=== PATIENT | female | born 1995 | race Caucasian/White ===

== ENCOUNTER 2021-02-01 10:30 | Outpatient (RCR) | payer BC, SELFPAY ==
[2021-02-01 12:26] LABS: Hematocrit 34.5 % (37.0-47.0); Hemoglobin 11.2 g/dL (12.0-15.0)
[2021-02-01 12:35] LABS: Glucose 1 Hour PP 50gm Dose 114 mg/dL
[2021-02-01 13:38] LABS: HIV 1/2 Ab P24 Ag Result Negative (Negative)
[2021-02-04] MEDS: RHO(D) IMMUNE GLOBULIN 300 MCG/2 ML SYRINGE IM (09:53)
[2021-02-04 10:25] LABS: Rapid Plasma Reagin Non-Reactive (NonReactive)
== END 2021-05-02 23:59 | disposition home or self-care (01) ==
LOC: ANHLAB 10:30
PROVIDERS: PCP Family Medicine; Visit Provider Obstetrics & Gynecology
DX: Z11.4 Encounter for screening for human immunodeficiency virus [HIV] (principal); Z29.13 Encounter for prophylactic Rho(D) immune globulin; O36.0130 Maternal care for anti-D [Rh] antibodies, third trimester, not applicable or unspecified; Z3A.00 Weeks of gestation of pregnancy not specified
CPT/HCPCS: 36415; 82947; 85014; 85018; 85461; 86592; 86703; 90384; 96372; G0432; J2790

== ENCOUNTER 2021-03-04 18:19 | Observation (INO) | payer BC, SELFPAY ==
[2021-03-04 18:55] VITALS: PULSE 127; O2SAT 97
[2021-03-04 18:56] VITALS: BP 105/60; PULSE 120
[2021-03-04 19:00] VITALS: TEMP 38.1
[2021-03-04 19:01] VITALS: BP 108/70; PULSE 124
[2021-03-04 19:16] VITALS: BP 109/75; PULSE 140
[2021-03-04 19:31] VITALS: BP 83/50; PULSE 122
[2021-03-04 19:52] VITALS: BMI 35.8
--- NOTE | 2021-03-04 19:53 | OBADM ---
This patient, Jasmin Etienne, admitted to the OB room OB Post 115 for observation. Patient/family oriented to hospital policies and general routines including ID bracelet, bed and alarms, visiting hours, pain management, procedures, bathroom and other care routines, personal items, smoking policy, room service/diet, and visiting hours. Patient/Family are encouraged to report perceived risks to care and to ask questions if they do not understand what they are told or what they should do. Patient was sent over from the ER for evaluation of Back Cramping Patient states that she originally presented to the ER for COVID symptoms. Patient states that she started having Symptoms on Thursday. Patient reports no shortness of breath or difficultly breathing. Patient states that she fever and body aches have been her worst symptoms. States that she has only had a slight cough. Patient also has some nausea and lack of appetite. Patient states that she has not yet been tested for covid, all of the regular testing places are booked up until the 16th of the month.
[2021-03-04 20:01] LABS: EDCOVIDSCREEN Positive (Negative)
--- NOTE | 2021-03-22 08:16 | PM.OBTRLD ---
OB - Triage/Final Diagnosis Visit Information Comments/Additional reasons for admission: I have assessed the risk for this patient, Jasmin Etienne, and determined that she would benefit from observation care. Evaluation Laboratory results: Laboratory Tests 03/04/21 19:46 SARS-CoV-2 IgG/IgM Ag?Rapid Positive Final Diagnosis (1) False labor: Code(s): O47.9 - False labor, unspecified Status: Acute
== END 2021-03-04 19:48 | disposition home or self-care (01) ==
PROVIDERS: Advanced Practice Midwife; Admitting Provider Obstetrics & Gynecology; PCP Family Medicine; Visit Provider Obstetrics & Gynecology
DX: O47.03 False labor before 37 completed weeks of gestation, third trimester (principal); O98.513 Other viral diseases complicating pregnancy, third trimester; U07.1 COVID-19; Z3A.32 32 weeks gestation of pregnancy
CPT/HCPCS: 36415; 87426; C9803; G0378; G0379

== ENCOUNTER 2021-04-13 01:02 | Inpatient (IN) | payer BC, SELFPAY ==
[2021-04-13] VITALS (65 sets, daily range): BP systolic 66–136; BP diastolic 34–104; PULSE 75–216; RESP 16–18; TEMP 36.1–37.1; O2SAT 81–100; BMI 31.6
--- NOTE | 2021-04-13 02:06 | LDADM ---
This patient, Jasmin Etienne, was admitted to Labor/Delivery/Recovery 107 on 04/13/21 at 01:02. Plans for labor, pain management and were discussed with patient. Patient/family oriented to hospital policies and general routines including ID bracelet, bed and alarms, visiting hours, pain management, procedures, bathroom and other care routines, personal items, smoking policy, room service/diet and guest tray routines, security routines, and visiting hours. Patient/Family are encouraged to report perceived risks to care and to ask questions if they do not understand what they are told or what they should do. See OBIX for further documentation.
[2021-04-13 02:13] LABS: Basophils Absolute Auto 0.1 K/mm3 (0.0-0.1); Basophils Percent Auto 0.6 % (0.2-1.2); Eosinophils Absolute Auto 0.1 K/mm3 (0-0.3); Eosinophils Percent Auto 0.9 % (0-4.4); Hematocrit 33.3 % (37.0-47.0); Hemoglobin 10.5 g/dL (12.0-15.0); Immature Granulocyte Absolute 0.11 K/mm3 (0.00-0.031); Immature Granulocyte Percent A 0.9 % (0-0.5); Lymphocytes Absolute Auto 3.15 K/mm3 (0.9-3.2); Lymphocytes Percent Auto 25.4 % (18.3-44.2); Mean Corpuscular HGB Conc 31.5 g/dl (32-36); Mean Corpuscular Hemoglobin 27.1 pg (26-34); Mean Corpuscular Volume 85.8 fl (80-100); Mean Platelet Volume 11.6 fl (7.4-10.4); Monocytes Absolute Auto 1.1 K/mm3 (0.1-0.6); Monocytes Percent Auto 8.7 % (2.6-8.5); Neutrophils Absolute Auto 7.9 K/mm3 (1.3-6.7); Neutrophils Percent Auto 63.5 % (45.5-73.1); Platelet Count Result 297 k/mm3 (150-375); Red Blood Count 3.88 M/mm3 (4.2-5.4); Red Cell Distribution Width 16.1 % (11.5-14.5); White Blood Count 12.4 K/mm3 (4.5-10.0)
[2021-04-13] MEDS: fentaNYL CITRATE INJ (*CRX) 100 MCG/2 ML VIAL 50 MCG IV PUSH (02:14)
[2021-04-13] MEDS: LACTATED RINGERS 1,000 ML 125 ML IV CONT ×3 (03:06→05:08)
--- NOTE | 2021-04-13 03:54 | WPDANESEPPF ---
Anes - Initial Pre Proc Eval Procedure: labor epidural Date/Time: 04/13/21 03:54 Surgeon: Myranda Martin MD Pre Op Diagnosis: labor pain Pre Op Diagnosis: Leaking Patient Data Age: 25 Gender: F Height: 1.65 m Weight: 86.3 kg Last Vital Signs Temp 36.6 C 04/13/21 02:18 Pulse 91 04/13/21 03:52 BP 115/64 04/13/21 03:52 Pulse Ox 100 04/13/21 03:51 Allergies Allergy/AdvReac Type Severity Reaction Status Date / Time No Known Allergies Allergy Verified 02/04/21 09:52 Home Medications Medication Instructions Recorded Confirmed Type PNV cmb#95-ferrous fumarate-FA 1 tablet PO DAILY 04/01/21 04/01/21 History [] aspirin 81 mg PO DAILY 04/01/21 04/01/21 History Laboratory Tests 04/13/21 04/13/21 04/13/21 01:49 01:49 01:49 WBC 12.4 K/mm3 H K/mm3 (4.5-10.0) RBC 3.88 M/mm3 L M/mm3 (4.2-5.4) Hgb 10.5 g/dL L g/dL (12.0-15.0) Hct 33.3 % L % (37.0-47.0) MCV 85.8 fl fl (80-100) MCH 27.1 pg pg (26-34) MCHC 31.5 g/dl L g/dl (32-36) RDW 16.1 % H % (11.5-14.5) Plt Count 297 k/mm3 k/mm3 (150-375) MPV 11.6 fl H fl (7.4-10.4) Immature Gran % (Auto) 0.9 % H % (0-0.5) Neut % (Auto) 63.5 % % (45.5-73.1) Lymph % (Auto) 25.4 % % (18.3-44.2) [place] % (Auto) 8.7 % H % (2.6-8.5) Eos % (Auto) 0.9 % % (0-4.4) Baso % (Auto) 0.6 % % (0.2-1.2) Lymph # (Auto) 3.15 K/mm3 K/mm3 (0.9-3.2) [place] # (Auto) 1.1 K/mm3 H K/mm3 (0.1-0.6) Eos # (Auto) 0.1 K/mm3 K/mm3 (0-0.3) Baso # (Auto) 0.1 K/mm3 K/mm3 (0.0-0.1) Abs Immat Gran (auto) 0.11 K/mm3 H K/mm3 (0.00-0.031) Absolute Neuts (auto) 7.9 K/mm3 H K/mm3 (1.3-6.7) Absolute Nucleated RBC 0.0 K/mm3 K/mm3 (0.0-0.012) Nucleated RBC % 0.0 % % (0.0-0.2) RPR Pending Blood Type O Negative Antibody Screen Negative Patient hx anesthesia problems: none Family hx anesthesia problems: none Results Review: All pre-operative results and documents have been reviewed as part of the pre-operative evaluation. [facility] Family History Family History (Updated 04/01/21 @ 13:38 by Chastity Peterson RN) Other No pertinent family history Social History Social History Smoking status: Never smoker Substance use: never Spiritual care concerns: No Anes - Eval Final PreProcedure Day of Procedure 04/13/21 03:54 Patient weight: obese ASA classification: II Anesthesia type and monitoring: regional epidural and standard monitoring Results Review: All pre-operative results and documents have been reviewed as part of the pre-operative evaluation. Informed Consent: The patient's anesthetic plan and its attendant risks and benefits were discussed with the patient/family/POA. Questions were solicited and answers provided to the satisfaction of the patient/family/POA.
[2021-04-13] MEDS: ONDANSETRON INJ 4 MG/2 ML VIAL IV PUSH (06:52)
[2021-04-13] MEDS: OXYTOCIN 30 UNITS/NS 500 ML 30 UNITS/500 ML BAG 999 UNITS IV CONT (07:07)
--- NOTE | 2021-04-13 07:28 | PM.OBPRVD ---
OB - Delivery Note Procedure Delivery date: 04/13/21 Procedure: vaginal delivery Induction method: None Delivery monitor: External FHT and External Uterine Route of delivery: Laceration Description: Perineal - 1st Degree and Labial (left) Delivery repair: vicryl Specimen: Yes Quantitative Blood Loss (ml): 135 Anesthesia type: Epidural Disposition: floor [place] Baby Date of : 04/13/21 Time of : 07:04 Weeks of gestation at delivery: 38 gender: Male Weight (pounds): 7 Weight (ounces): 1 presentation: vertex position: Left Occiput Transverse Placenta delivery description: Spontaneous Cord Vessel Description: 3 Vessels, Clamped/Cut and Delayed Cord Clamping score one minute: 9 score five minutes: 9 Narrative: mother and baby skin to skin in stable condition
[2021-04-13] MEDS: OXYTOCIN 30 UNITS/NS 500 ML 30 UNITS/500 ML BAG 125 UNITS IV CONT (07:39)
[2021-04-13] MEDS: WITCH HAZEL 40 PADS 1 PAD TOPICAL (10:00)
[2021-04-13] MEDS: BENZOCAINE 20% AER SPR (*SP) 56 GM CAN 1 SPRAY TOPICAL (10:00)
[2021-04-13] MEDS: IBUPROFEN 600 MG TABLET PO ×2 (12:31→19:09)
--- NOTE | 2021-04-13 13:29 | OBPPTRN ---
1028-Patient transferred to post room #286 via wheelchair. Support person present. Oriented to unit, room, information board, rooming in, admission packet and security measures. Patient verbalizes understanding.
[2021-04-14 00:12] VITALS: BP 110/65; PULSE 80; RESP 16; TEMP 36.4; O2SAT 99
[2021-04-14] MEDS: IBUPROFEN 600 MG TABLET PO ×3 (01:11→16:01)
[2021-04-14 05:15] VITALS: BP 129/90; PULSE 77; RESP 18; TEMP 36.6; O2SAT 98
[2021-04-14 05:22] LABS: Hematocrit 30.7 % (37.0-47.0); Hemoglobin 9.5 g/dL (12.0-15.0)
[2021-04-14 08:04] VITALS: BP 118/74; PULSE 75; RESP 16; TEMP 36.1
[2021-04-14] MEDS: POLYSACCHARIDE IRON COMPLEX 150 MG CAPSULE PO ×2 (08:04→15:59)
--- NOTE | 2021-04-14 10:53 | PM.OBPNVD ---
OB - PN: Subj Subjective Date/time seen: 04/14/21 10:53 Patient comments: no complaints baby status: doing well OB - PN: Obj Data Labs CBC & Chem 7: 04/14/21 05:11 Labs: Laboratory Results - last 24 hr 04/14/21 04/14/21 05:11 05:11 Hgb 9.5 L Hct 30.7 L Blood Type O Negative Antibody Screen TNP Screen Negative Baby's Blood Type O pos Baby's DIANE Negative Doses of RhIg Required 1 OB - PN A/P Plan day: 1 Plan: routine care Time Spent With Patient Time: Total time spent is greater than 50% in coordination of care (as documented) at patient's floor/unit and/or counseling patient: Review of Systems Review of Systems: All systems reviewed & are unremarkable except as noted in HPI and below Exam Const: General: cooperative, healthy appearing and comfortable
[2021-04-14] MEDS: RHO(D) IMMUNE GLOBULIN 300 MCG/2 ML SYRINGE IM (12:51)
[2021-04-14 19:14] VITALS: BP 121/82; PULSE 72; RESP 16; TEMP 36.9; O2SAT 99
[2021-04-15 07:15] LABS: Rapid Plasma Reagin Non-Reactive (NonReactive)
--- NOTE | 2021-04-15 07:30 | PM.OBPNVD ---
OB - PN: Subj Subjective Date/time seen: 04/15/21 07:30 Patient comments: no complaints baby status: doing well OB - PN: Obj Data Labs CBC & Chem 7: 04/14/21 05:11 Labs: Laboratory Results - last 24 hr 04/13/21 04/14/21 01:49 05:11 RPR Non-reactive Blood Type O Negative Antibody Screen TNP Screen Negative Baby's Blood Type O pos Baby's DIANE Negative Doses of RhIg Required 1 OB - PN A/P Plan day: 2 Plan: routine care and discharge home (F/U in 4 weeks) Time Spent With Patient Time: Total time spent is greater than 50% in coordination of care (as documented) at patient's floor/unit and/or counseling patient: Time with patient: less than 15 minutes Review of Systems Review of Systems: All systems reviewed & are unremarkable except as noted in HPI and below Exam Narrative: Fundus firm and vaginal flow controlled. No lower ext redness, warmth, or edema. Negative homans. Const: General: comfortable Chest: Breast/axilla inspection: normal inspection of the breasts Resp: Effort & Inspection: normal respiratory effort Cardio: Rate: regular rate GI: GI Palp: Yes Soft to palpation Psych: Appearance: grossly normal Affect: normal affect Attitude: cooperative Thought content: Yes Normal thought content present Judgement: Good judgement present (Psych)
--- NOTE | 2021-04-15 07:31 | PM.OBDSVD ---
DS: Admitting Diagnosis Discharge Date 04/15/20 Admitting Diagnosis Labor OB - DS: Summary OB Procedures : None OB Procedures Intrapartum: Spontaneous Vag Delivery OB Procedures: : None Time Spent with Patient Time attestation: Total time spent providing and/or coordinating discharge services: DS: Data Data Completed and Pending Pending studies at discharge: Pending at discharge 04/13/21 07:08 Surgical [PTH] Routine Labs on day of discharge: Labs from last 24 hours 04/14/21 04/13/21 05:11 01:49 RPR Non-reactive Blood Type O Negative Antibody Screen TNP Screen Negative Baby's Blood Type O pos Baby's DIANE Negative Doses of RhIg Required 1 Discharge Plan Discharge Attending physician on discharge: Moni Art Discharging Clinician: Moni Art Patient Disposition: Home, Self-Care Activity: pelvic rest Diet: as tolerated Patient Instructions: Antibiotic Form Stand Alone Forms: General Discharge Information Follow-up/Referrals: Moni Art, CNM [Certified Nurse Fire Apparatus Sprinkler Inspector] - Discharge Medications: Continued aspirin 81 mg Tablet 81 mg PO DAILY RF: 0 PNV cmb#95-ferrous fumarate-FA [] 28 mg iron- 800 mcg Tablet 1 tablet PO DAILY RF: 0 Date of admission: 04/13/21 01:02 Primary Care Provider: [place] Gre[place] Admitting Provider: Myranda Martin Attending physician on admission: Myranda Martin Condition: Stable
[2021-04-15] MEDS: IBUPROFEN 600 MG TABLET PO ×2 (07:55)
[2021-04-15] MEDS: DOCUSATE SODIUM 100 MG CAPSULE PO (07:55)
[2021-04-15] MEDS: POLYSACCHARIDE IRON COMPLEX 150 MG CAPSULE PO (07:55)
[2021-04-15 07:59] VITALS: BP 119/77; PULSE 79; RESP 18; TEMP 36.8; O2SAT 100
--- NOTE | 2021-04-15 08:00 | PC.NURSE ---
Patient viewed the discharge video Mother & Baby Care, The First Two Weeks . Patient was given the opportunity and encouraged to ask questions. Patient verbalized understanding of information shared and has been given the mother/baby guide for home reference.
[2021-04-16 11:21] VITALS: BP 127/76; PULSE 88; RESP 16; TEMP 36.6; O2SAT 99
== END 2021-04-15 09:05 | disposition home or self-care (01) | DRG 807 ==
LOC: ANHLDR 01:36 → ANHOB2 10:34
PROVIDERS: Advanced Practice Midwife; Admitting Provider Obstetrics & Gynecology; PCP Family Medicine; Visit Provider Obstetrics & Gynecology
DX: O70.0 First degree perineal laceration during delivery (principal); Z37.0 Single live birth; Z3A.38 38 weeks gestation of pregnancy; O36.8330 Maternal care for abnormalities of the fetal heart rate or rhythm, third trimester, not applicable or unspecified; Z23 Encounter for immunization
CPT/HCPCS: 36415; 84112; 85014; 85018; 85025; 85461; 86592; 86850; 86900; 86901; 88307; 90384; 90471; 90653; A9270; G0008; J2405; J2590; J2790; J2795; J3010; J7120

== ENCOUNTER 2023-03-31 10:35 | Outpatient (RCR) | payer OTHER, BC, MEDICAID, SELFPAY ==
[2023-03-28 13:03] LABS: Glucose 1 Hour PP 50gm Dose 103 mg/dL
[2023-03-31] MEDS: RHO(D) IMMUNE GLOBULIN 300 MCG/2 ML SYRINGE IM (09:06)
== END 2023-03-31 11:00 | disposition home or self-care (01) ==
LOC: ANHLAB 10:35
PROVIDERS: PCP Family Medicine; Visit Provider Obstetrics & Gynecology
DX: Z29.13 Encounter for prophylactic Rho(D) immune globulin (principal); O36.0190 Maternal care for anti-D [Rh] antibodies, unspecified trimester, not applicable or unspecified; Z3A.00 Weeks of gestation of pregnancy not specified
CPT/HCPCS: 36415; 82947; 85461; 86850; 86900; 86901; 90384; 96372; J2790

== ENCOUNTER 2023-05-13 05:01 | Inpatient (IN) | payer OTHER, BC, MEDICAID, SELFPAY ==
[2023-05-13] VITALS (130 sets, daily range): BP systolic 62–153; BP diastolic 29–122; PULSE 59–178; RESP 18; TEMP 36.8–37.1; O2SAT 81–100; BMI 37.0
[2023-05-13 05:53] LABS: Basophils Absolute Auto 0.1 K/mm3 (0.0-0.1); Basophils Percent Auto 0.6 % (0.2-1.2); Eosinophils Absolute Auto 0.1 K/mm3 (0-0.3); Eosinophils Percent Auto 0.9 % (0-4.4); Hematocrit 34.1 % (37.0-47.0); Hemoglobin 10.4 g/dL (12.0-15.0); Immature Granulocyte Absolute 0.11 K/mm3 (0.00-0.031); Immature Granulocyte Percent A 0.9 % (0-0.5); Lymphocytes Absolute Auto 3.53 K/mm3 (0.9-3.2); Lymphocytes Percent Auto 30.4 % (18.3-44.2); Mean Corpuscular HGB Conc 30.5 g/dl (32-36); Mean Corpuscular Hemoglobin 24.8 pg (26-34); Mean Corpuscular Volume 81.4 fl (80-100); Mean Platelet Volume 10.5 fl (7.4-10.4); Monocytes Absolute Auto 0.9 K/mm3 (0.1-0.6); Monocytes Percent Auto 7.8 % (2.6-8.5); Neutrophils Absolute Auto 6.9 K/mm3 (1.3-6.7); Neutrophils Percent Auto 59.4 % (45.5-73.1); Platelet Count Result 291 k/mm3 (150-375); Red Blood Count 4.19 M/mm3 (4.2-5.4); Red Cell Distribution Width 16.4 % (11.5-14.5); White Blood Count 11.6 K/mm3 (4.5-10.0)
[2023-05-13] MEDS: LACTATED RINGERS 1,000 ML 125 ML IV CONT ×3 (05:54→09:47)
[2023-05-13] MEDS: OXYTOCIN 30 UNITS/NS 500 ML 30 UNITS/500 ML BAG IV CONT (05:55)
[2023-05-13 06:43] LABS: HIV 1/2 Ab P24 Ag Result Negative (Negative)
--- NOTE | 2023-05-13 07:37 | WPDOBADMIT ---
Obstetrics - Admit Note Admission Note: record reviewed. No pertinent additions to the history and/or any subsequent changes in the physical findings that are not consistent with the expected course of the were found. Additions to the history and/or subsequent changes in the physical findings follow. IOL, SVE 3+/75/-2, arom minimal amount of clear,odorless fluid,anticipate vaginal delivery
[2023-05-13 08:47] LABS: Rapid Plasma Reagin Non-Reactive (NonReactive)
[2023-05-13] MEDS: PHENYLEPHRINE 1,000 MCG/10 ML SYRINGE 100 MCG IV PUSH ×2 (09:06→09:11)
--- NOTE | 2023-05-13 13:33 | PM.OBPRVD ---
OB - Vaginal Delivery Note Procedure Delivery date: 05/13/23 Induction method: AROM and Per Pitocin Protocol Delivery monitor: External FHT and External Uterine Route of delivery: Laceration Description: None Specimen: No Quantitative Blood Loss (ml): 50 Anesthesia type: Epidural Disposition: Floor Complications: Other complications Narrative: head delivered ANITA, while fetus trying to rotate to OP, anterior shoulder rotated back to position baby ANITA and posterior shoulder easily delivered, less than one minute. Baby Date of : 05/13/23 Time of : 13:19 Weeks of gestation at delivery: 39 gender: Female Weight (pounds): 7 Weight (ounces): 13 presentation: vertex position: Left Occiput Anterior Placenta delivery description: Spontaneous Cord Vessel Description: 3 Vessels, Nuchal Cord (x2), Loose and Reduced score one minute: 7 score five minutes: 9 Narrative: baby to warmer for evaluation, skin to skin in stable condition after evaluated by asic verification engineer, moving all extremities
[2023-05-13] MEDS: OXYTOCIN 30 UNITS/NS 500 ML 30 UNITS/500 ML BAG 125 UNITS IV CONT (14:05)
--- NOTE | 2023-05-13 16:36 | OBPPTRN ---
Patient transferred to post room #281 via wheelchair. Support person present. Oriented to unit, room, information board, rooming in, admission packet and security measures. Patient verbalizes understanding.
[2023-05-13] MEDS: IBUPROFEN 600 MG TABLET PO (17:55)
[2023-05-14 03:45] VITALS: BP 117/75; PULSE 88; RESP 20; TEMP 36.9; O2SAT 98
[2023-05-14 03:50] LABS: Hematocrit 36.2 % (37.0-47.0); Hemoglobin 9.4 g/dL (12.0-15.0)
[2023-05-14] MEDS: IBUPROFEN 600 MG TABLET PO (03:50)
--- NOTE | 2023-05-14 06:08 | PM.OBPNVD ---
OB - PN: Subj Subjective Date/time seen: 05/14/23 06:08 Interval history: pp day 1 doing well no complaints would like d/c home OB - PN: Obj Data Labs 05/14/23 03:42 Labs: Laboratory Results - last 24 hr 05/13/23 05/14/23 05:45 03:42 Hgb 9.4 L Hct 36.2 L RPR Non-reactive HIV 1&2 Ab/P24 Ag 4thGn Negative Blood Type O Negative O Negative Antibody Screen Positive Positive Antibody Identification Passive Due to RH Imm Glob Passive Due to RH Imm Glob Antigen Identification TNP Cancelled DIANE, IgG Interpret Not Performed Not Performed DIANE, Poly Interpret Negative Neg DIANE, Complement Interp Not Performed Not Performed Screen TNP Baby's Blood Type O pos Baby's DIANE Negative KB Hemoglobin Negative Doses of RhIg Required 1 OB - PN A/P Plan day: 1 Plan: routine care and discharge home Time Spent With Patient Time: Total time spent is greater than 50% in coordination of care (as documented) at patient's floor/unit and/or counseling patient: Review of Systems Review of Systems: All systems reviewed & are unremarkable except as noted in HPI and below Exam Const: General: cooperative and healthy appearing Resp: Effort & Inspection: normal respiratory effort Cardio: Rate: regular rate GI: Inspection: normal to inspection Skin: General skin exam: normal color Extrem: Right lower extremity: normal to inspection Left lower extremity: normal to inspection Psych: Appearance: grossly normal
--- NOTE | 2023-05-14 06:10 | P.DS_ITS ---
DS: Admitting Diagnosis Discharge Date 05/14/23 Admitting Diagnosis IOL DS: Discharge Diagnosis Discharge Diagnosis (1) Vaginal delivery: Code(s): O80 - Encounter for full-term uncomplicated delivery Status: Acute OB - DS: Summary OB Procedures : None OB Procedures Intrapartum: Spontaneous Vag Delivery OB Procedures: : None Peripartum Data Laceration Description: None Time Spent with Patient Time attestation: Total time spent providing and/or coordinating discharge services: DS: Data Data Completed and Pending Labs on day of discharge: Labs from last 24 hours 05/14/23 05/13/23 03:42 05:45 Hgb 9.4 L Hct 36.2 L RPR Non-reactive HIV 1&2 Ab/P24 Ag 4thGn Negative Blood Type O Negative O Negative Antibody Screen Positive Positive Antibody Identification Passive Due to RH Imm Glob Passive Due to RH Imm Glob Antigen Identification Cancelled TNP DIANE, IgG Interpret Not Performed Not Performed DIANE, Poly Interpret Neg Negative DIANE, Complement Interp Not Performed Not Performed Screen TNP Baby's Blood Type O pos Baby's DIANE Negative KB Hemoglobin Negative Doses of RhIg Required 1 Discharge Plan Discharge Attending physician on discharge: Myranda Martin Discharging Clinician: Kelly Rojas Patient Disposition: Home, Self-Care Activity: pelvic rest Diet: regular Patient Instructions: Antibiotic Form Stand Alone Forms: General Discharge Information Follow-up/Referrals: Kelly Rojas, CAESARM [Certified Nurse Electron Microprobe Operator] - 4 Weeks Discharge Medications: New ibuprofen 600 mg Tablet 600 mg PO Q6H PRN (Reason: Cramping) Qty: 30 0RF Continued PNV cmb#95-ferrous fumarate-FA [] 28 mg iron- 800 mcg Tablet 1 tablet PO DAILY Discontinued aspirin 81 mg Tablet 81 mg PO DAILY Date of admission: 05/13/23 05:01 Primary Care Provider: [place] Admitting Provider: Myranda Martin Attending physician on admission: Myranda Martin Condition: Stable
[2023-05-14] MEDS: POLYSACCHARIDE IRON COMPLEX 150 MG CAPSULE PO (07:58)
[2023-05-14] MEDS: MULTIVIT/MIN/PREN/FOL AC/IRON TABLET 1 TAB PO (07:58)
[2023-05-14 08:02] VITALS: BP 118/72; PULSE 72; RESP 16; TEMP 37.4; O2SAT 98
[2023-05-14] MEDS: RHO(D) IMMUNE GLOBULIN 300 MCG/2 ML SYRINGE IM (10:02)
--- NOTE | 2023-05-14 12:37 | WPDANLDPN2 ---
Anes-Prog Note L&D Date/Time: 05/14/23 12:37 Comfortable throughout: labor and delivery Neuraxial method: epidural Epidural/Spinal procedure site: clean & non-tender Neuro status: Neuro function grossly intact. Cardiovascular status: normal Respiratory status: normal Airway patency: baseline Mental status: baseline Post-Op hydration status: normal Vital Signs: Last Vital Signs Temp 37.4 C 05/14/23 08:02 Pulse 72 05/14/23 08:02 Resp 16 05/14/23 08:02 BP 118/72 05/14/23 08:02 Pulse Ox 98 05/14/23 08:02 O2 Del Method Room Air 05/14/23 08:00 Pain score (VAS): 0/10 Post-procedural complaints: none Patient feedback: Patient satisfied with anesthetic care.
--- NOTE | 2023-05-14 14:23 | PC.NURSE ---
0900 Consulted with mother concerning needs. Mother shared everything is going well and declined further assistance. Mother is feeding appropriately for growth of and understands stimulating to eat if needed. has had appropriate feedings in the last 24 hours meets the outcomes for weight, output, blood sugar and jaundice at this time. Reinforced understanding of milk production, transition of milk, signs of adequate intake, transition of stool, prevention/relief of engorgement, plugged ducts, mastitis, responsive watching for feeding cues, the different methods of stimulating infant to breastfeed 1-3 hours after the start of the last feeding, community resources, and when to call a provider using the resource of the feeding sheet along with the mom and baby guide. Mother voiced understanding of the information shared, is confident to continue feeding her infant at home, when to call for assistance, denies any additional assistance or education at this time.
[2023-05-15 10:22] VITALS: BP 124/82; PULSE 79; RESP 18; TEMP 36.7; O2SAT 100
== END 2023-05-14 14:01 | disposition home or self-care (01) | DRG 807 ==
LOC: ANHLDR 05:07 → ANHOB2 16:47
PROVIDERS: Admitting Provider Obstetrics & Gynecology; PCP Family Medicine; Referring Provider Advanced Practice Midwife; Visit Provider Obstetrics & Gynecology
DX: O69.81X0 Labor and delivery complicated by cord around neck, without compression, not applicable or unspecified (principal); Z37.0 Single live birth; Z3A.38 38 weeks gestation of pregnancy
CPT/HCPCS: 36415; 85014; 85018; 85025; 85460; 85461; 86592; 86703; 86850; 86880; 86900; 86901; 86902; 90384; A9270; G0432; J2371; J2590; J2790; J2795; J7120